=== PATIENT | female | born 1995 | race Caucasian/White ===

== ENCOUNTER 2022-02-08 10:35 | Inpatient (IN) | payer MEDICAID, SELFPAY ==
[2022-02-08] VITALS (37 sets, daily range): BP systolic 106–150; BP diastolic 63–86; PULSE 67–149; TEMP 36.4–37.2; O2SAT 78–100; BMI 29.0
[2022-02-08] MEDS: Lactated Ringers 1,000 ML 200 ML IV ×2 (11:00→13:13)
[2022-02-08] MEDS: LACTATED RINGERS 500 ML 999 ML IV (11:10)
[2022-02-08 11:28] LABS: Absolute Lymphocyte Count 1.76 X10^3/uL (0.83-4.51); Absolute Neutrophil Count 17.8 X10^3/uL (2.0-7.7); Basophil# 0.03 X10^3/uL; Basophil% 0.1 % (0-1); Hematocrit 37.4 % (37-47); Hemoglobin 12.4 g/dL (12.0-15.0); Lymphocyte # 1.76 X10^3/ul (0.83-4.51); Lymphocyte % 8.2 % (19-41); Mean Corp Hgb Conc 33.2 g/dL (32-36); Mean Corpuscular Hgb 31.6 pg (27.0-32.0); Mean Corpuscular Volume 95.2 fL (81-99); Mean Platelet Vol. 10.2 fl (6.2-12.0); Monocyte# 1.55 X10^3/uL; Monocyte% 7.2 % (0-10); NRBC Flagged by Analyzer 0 % (0-5); Neutrophil # 17.82 X10^3/uL (2.7-7.7); Neutrophil % 83.1 % (47-70); POSITIVE DIFFERENTIAL YES; Platelet Count 333 K/mm3 (150-450); RBC Distribution Width CV 14.6 % (11.6-14.6); RBC Distribution Width SD 50.4 fl (35.1-43.9); Red Blood Count 3.93 M/mm3 (4.2-5.4); White Blood Count 21.5 K/mm3 (4.4-11.0)
[2022-02-08 11:31] LABS: Differential Indicated SCAN CRITERIA MET
[2022-02-08 12:02] LABS: Platelet Estimate ADEQUATE (ADEQ); Red Cell Morphology NORM C+C NORMAL (NORM C&C)
--- NOTE | 2022-02-08 12:30 | PCM.HP.OB ---
HPI - General General Date of Admission: 02/08/22 HPI Narrative JENISE MARY, is a 26 F who presents at 39w6d. Arrived as transfer of care from home for maternal pain management. 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 Labor started on 02/07/22 at 0130 per patient. Upon arrival to unit patient was 7cm dilated and requesting epidural for pain management. Co-care completed during with limited visits. uncomplicated. Maternal Data Information Final MARVIN: 02/09/22 PFSH PFSH Home Medications [id number] 1 mg tablet tab PO 02/08/22 [History Last Taken Unknown] Allergy/AdvReac Type Severity Reaction Status Date / Time No Known Allergies Allergy Verified 02/08/22 11:13 Social History Smoking Status: Never smoker History Elective abortions Hx Para 0 Spontaneous abortions Hx # Term Pregnancies Ectopic pregnancies Hx # Pregnancies Multiple births # of living children NST FHR Rate Baby A Baseline: 140 Variability:: Moderate Accelerations:: 15 x 15 FHR Category:: Category I Uterine Activity:: every 2-3 minutes, strong ROS Constitutional Constitutional: Reports systems reviewed and no addt'l complaints, except as documented; Denies headache(s) Eyes Eyes: Denies acute decrease in peripheral vision, blurry vision or change in vision ENT HEENT: Reports systems reviewed and no addt'l complaints, except as documented Cardiovascular Cardiovascular: Denies chest pain or dizziness Respiratory/Chest Respiratory/Chest: Denies cough, dyspnea, dyspnea on exertion, shortness of breath at rest or shortness of breath with exertion Gastrointestinal Gastrointestinal: Denies abdominal pain, diarrhea, nausea or vomiting Genitourinary Genitourinary: Reports movement; Denies abdominal discomfort Musculoskeletal Musculoskeletal: Denies limited range of motion Integumentary Integumentary: Reports systems reviewed and no addt'l complaints, except as documented Neurologic Neurologic: Reports systems reviewed and no addt'l complaints, except as documented Psychiatric Psychiatric: Reports systems reviewed and no addt'l complaints, except as documented Endocrine Endocrinology: Reports systems reviewed and no addt'l complaints, except as documented Hematologic/Lymphatic Hematologic/Lymphatic: Reports systems reviewed and no addt'l complaints, except as documented Allergic/Immunologic Allergic/Immunologic: Reports systems reviewed and no addt'l complaints, except as documented Vital Signs Vital Signs Vital Signs: 02/08/22 11:43 02/08/22 11:43 02/08/22 11:43 Pulse Rate 95 Blood Pressure 137/82 H BP Systolic 137 BP Diastolic 82 Pulse Ox 99 02/08/22 11:48 02/08/22 11:48 02/08/22 11:48 Pulse Rate 102 H Blood Pressure 132/78 H BP Systolic 132 BP Diastolic 78 Pulse Ox 99 02/08/22 11:54 02/08/22 11:54 02/08/22 11:53 Pulse Rate 98 Blood Pressure 133/80 H BP Systolic 133 BP Diastolic 80 Pulse Ox 96 02/08/22 11:59 02/08/22 11:59 02/08/22 11:58 Pulse Rate 102 H Blood Pressure 144/77 H BP Systolic 144 BP Diastolic 77 Pulse Ox 91 02/08/22 11:59 02/08/22 11:59 02/08/22 12:03 Pulse Rate 100 Blood Pressure 150/82 H BP Systolic 150 BP Diastolic 82 Pulse Ox 100 02/08/22 12:03 02/08/22 12:05 02/08/22 12:05 Pulse Rate 103 H 102 H Blood Pressure BP Systolic BP Diastolic Pulse Ox 99 02/08/22 12:10 02/08/22 12:10 02/08/22 12:14 Pulse Rate 97 Blood Pressure 138/82 H BP Systolic 138 BP Diastolic 82 Pulse Ox 99 02/08/22 12:14 02/08/22 12:15 02/08/22 12:15 Pulse Rate 100 102 H Blood Pressure BP Systolic BP Diastolic Pulse Ox 100 02/08/22 12:18 02/08/22 12:18 02/08/22 12:20 Pulse Rate 107 H 100 Blood Pressure 138/81 H BP Systolic 138 BP Diastolic 81 Pulse Ox 02/08/22 12:20 02/08/22 12:25 02/08/22 12:25 Pulse Rate 98 Blood Pressure 150/86 H BP Systolic 150 BP Diastolic 86 Pulse Ox 100 02/08/22 12:25 Pulse Rate Blood Pressure BP Systolic BP Diastolic Pulse Ox 98 Weight Weight: 164 lb Body Mass Index (BMI) 29.0 Labs Labs Labs: Blood Type A POSITIVE Antibody Screen NEGATIVE Hct 37.4 % (37-47) Hgb 12.4 g/dL (12.0-15.0) RPR negative HIV negative HepC negative Rubella Immune HBsAG negative GC/CT negative Declined GBS Assessment & Plan (1) Late care: (2) Active labor at term: PLAN: Plan 1) Admit to labor and delivery 2) Routine labs 3) Epidural for pain management 4) No GBS completed, patient declined and treatment. Informed refusal. 5) Continuous EFM 6) AROM 7) collaborative physician and notified of patient status
[2022-02-08] MEDS: DiphenhydrAMINE 50 MG/ML Syringe 25 MG IV (12:40)
[2022-02-08] MEDS: fentaNYL-bupivacaine (epidural) 100 ML BAG EPIDURAL ×2 (13:14→15:35)
[2022-02-08] MEDS: Oxytocin 30 units/NS 500 ml 30 UNITS/500 ML IV.SOLN 334 UNITS IV (18:20)
--- NOTE | 2022-02-08 18:56 | EX.PCM.OBRPT ---
Assessment & Plan (1) Vaginal delivery: (2) Second degree perineal laceration: Vaginal Delivery Maternal Presentation Maternal Presentation: Active Labor Maternal Presentation: Active labor at term Operative Information Date of Procedure: 02/08/22 Pre-Operative Diagnosis: Active Labor Post-Operative Diagnosis: , second degree perineal laceration Surgery / Procedure Performed: Spontaneous Vaginal Delivery Type of Anesthesia: Epidural and Local with 1% Lidocaine Estimated Blood Loss: 500 ml Time of Delivery: 18:05 Findings Description of Procedure: Progressed to complete with urge to push. Epidural for pain management. of viable male infant over 2nd degree perineal lacerations. APGARS 8,9 respectively. head delivered with body immediately forthcoming. Placed on maternal abdomen, strong cry. Mouth and nares suctioned for secretions. Pitocin started for active 3rd stage management. Cord doubly clamped and cut by FOB after pulsations ceased, delayed cord clamping. Placenta delivered intact via félix, 3 vessel cord intact. Perineum inspected and revealed 2nd degree perineal laceration. Repaired with 3.0 vicryl rapide and lidocaine. Fundus firm and hemostasis achieved. EBL 500 ml. Mom and baby stable, planning to breastfeed. Family bonding well. notified of delivery. Presentation: Vertex and YOHAN Amniotic Membrane Rupture Type: Artificial Amniotic Fluid Description: Clear Placental Delivery Description: Spontaneous Placenta Disposition: [facility] Cord Vessel Description: 3 Vessels Cord Entanglement: None Infant A Gender: Male (1 minute): 8 (5 minute): 9 Delayed Cord Clamping: Yes Post Vaginal Delivery Medications Given After Delivery: IV Pitocin Episiotomy Description: None Laceration: Perineal Extension/lac and 2nd degree Complication Complications: None
[2022-02-08] MEDS: Ibuprofen 600 MG Tablet PO (21:10)
[2022-02-09 00:18] VITALS: BP 128/90; PULSE 116; RESP 16; TEMP 36.7
[2022-02-09] MEDS: Acetaminophen 500 MG Tablet 1000 MG PO ×2 (00:39→09:58)
[2022-02-09 04:10] VITALS: BP 105/52; PULSE 91; RESP 16; TEMP 36.7
[2022-02-09] MEDS: Ibuprofen 600 MG Tablet PO ×2 (04:33→18:50)
[2022-02-09] MEDS: Senna/Docusate Sodium 1 Tablet PO (04:34)
[2022-02-09 05:52] LABS: Hematocrit 29.5 % (37-47); Hemoglobin 10.1 g/dL (12.0-15.0); Mean Corp Hgb Conc 34.2 g/dL (32-36); Mean Corpuscular Volume 96.4 fL (81-99); Mean Platelet Vol. 9.7 fl (6.2-12.0); Platelet Count 229 K/mm3 (150-450); RBC Distribution Width CV 14.7 % (11.6-14.6); RBC Distribution Width SD 51.2 fl (35.1-43.9); Red Blood Count 3.06 M/mm3 (4.2-5.4); White Blood Count 17.4 K/mm3 (4.4-11.0)
[2022-02-09 09:00] VITALS: BP 106/69; PULSE 87; RESP 18; TEMP 37; O2SAT 99
[2022-02-09] MEDS: Dibucaine 30 GM Tube 1 APPLIC TOPICAL (09:58)
--- NOTE | 2022-02-09 10:41 | PN.OBGYN_ITS ---
Subjective Subjective Doing well per patient and nursing staff. Ambulating and taking PO without difficulty. Voiding and passing flatus. Pain controlled. , services for assistance. Denies headache, visual changes, chest pain, shortness of breath, leg pain or increased bleeding. Lochia normal. Objective Data Objective Data Vital Signs: Vital Signs Temp Pulse Resp BP Pulse Ox O2 Del Method 98.6 F 87 18 106/69 99 Room Air 02/09/22 09:00 02/09/22 09:00 02/09/22 09:00 02/09/22 09:00 02/09/22 09:00 02/09/22 09:00 Oxygen Delivery Method Room Air Weight: 164 lb Body Mass Index (BMI) 29.0 Intake & Output: Intake and Output for Last 24 Hours 02/07/22 02/08/22 02/09/22 23:59 23:59 23:59 Intake Total 2433.33 / 2433.33 Output Total 200 / 200 Balance 2233.33 / 2233.33 Lab / Micro Data Result Diagrams: 02/09/22 05:45 Labs: Laboratory Results - last 24 hr 02/08/22 11:05: WBC 21.5 H, RBC 3.93 L, Hgb 12.4, Hct 37.4, MCV 95.2, MCH 31.6, MCHC 33.2, RDW Std Deviation 50.4 H, RDW Coeff of Abner 14.6, Plt Count 333, MPV 10.2, Immature Gran % (Auto) 1.400 H, Neut % (Auto) 83.1 H, Lymph % (Auto) 8.2 L , Rapides % (Auto) 7.2, Eos % (Auto) 0.0, Baso % (Auto) 0.1, Absolute Neuts (auto) 17.8 H, Absolute Lymphs (auto) 1.76, Nucleated RBC % 0, Differential Comment , Diff Path Review May foll, Platelet Estimate ADEQUATE, RBC Morphology NORM C+C 02/08/22 11:05: Blood Type A POSITIVE, Antibody Screen NEGATIVE 02/09/22 05:45: WBC 17.4 H, RBC 3.06 L, Hgb 10.1 L, Hct 29.5 L, MCV 96.4, MCH 33.0 H, MCHC 34.2, RDW Std Deviation 51.2 H, RDW Coeff of Abner 14.7 H, Plt Count 229, MPV 9.7 ROS Constitutional Constitutional: Reports systems reviewed and no addt'l complaints, except as documented; Denies headache(s) Eyes Eyes: Denies acute decrease in peripheral vision, blurry vision or change in vision ENT HEENT: Reports systems reviewed and no addt'l complaints, except as documented Cardiovascular Cardiovascular: Denies chest pain or dizziness Respiratory/Chest Respiratory/Chest: Denies cough, dyspnea, dyspnea on exertion, shortness of breath at rest or shortness of breath with exertion Gastrointestinal Gastrointestinal: Denies abdominal pain, diarrhea, nausea or vomiting Genitourinary Genitourinary: Denies abdominal discomfort Musculoskeletal Musculoskeletal: Denies limited range of motion Integumentary Integumentary: Reports systems reviewed and no addt'l complaints, except as documented Neurologic Neurologic: Reports systems reviewed and no addt'l complaints, except as documented Psychiatric Psychiatric: Reports systems reviewed and no addt'l complaints, except as documented Endocrine Endocrinology: Reports systems reviewed and no addt'l complaints, except as documented Hematologic/Lymphatic Hematologic/Lymphatic: Reports systems reviewed and no addt'l complaints, except as documented Allergic/Immunologic Allergic/Immunologic: Reports systems reviewed and no addt'l complaints, except as documented Physical Exam Const alert and oriented x3 General Appearance: cooperative Orientation / Consciousness: awake, oriented to person, oriented to place and oriented to time Exam Limitations: no limitations HEENT normocephalic Head and Scalp: normal to inspection, normocephalic and atraumatic Face and Sinus: normal facial exam Eyes General Eye: normal appearance of both eyes Neck full ROM Chest Chest: symmetrical chest wall rise Resp normal respiratory effort and normal air movement Auscultation: clear to auscultation bilaterally Cardio regular rate, regular rhythm, S1 normal heart sound, S2 normal heart sound, no murmurs, no rub, no gallops and no clicks GI normal to inspection, nondistended, normoactive bowel sounds and non-tender appearance of the vagina normal Bladder / Kidney Exam: no CVA tenderness Back/Spine normal ROM Extremity normal to inspection and full ROM Skin no rashes or lesions noted Neuro oriented x3, CN's II-XII intact bilaterally and moves all extremities Sensorium / Orientation: awake, alert and oriented to person Motor Exam: clonus absent Deep Tendon Reflexes: Rt Patellar (L4): 2+ and Lt Patellar (L4): 2+ Assessment & Plan (1) Second degree perineal laceration: (2) Vaginal delivery: PLAN: Plan 1) Routine PP care 2) Pain management 3) Vitals stable 4) Planning D/C home tomorrow
[2022-02-09 11:30] VITALS: BP 100/54; PULSE 94; RESP 18; TEMP 36.9; O2SAT 98
[2022-02-09] MEDS: Benzocaine/Lanolin/Aloe Vera 1 SPRAY EACH TOPICAL (11:34)
[2022-02-09] MEDS: Prenatal Vits Tablet 1 TABLET PO (11:34)
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
[2022-02-09 16:40] VITALS: BP 118/70; PULSE 108; RESP 18; TEMP 36.7; O2SAT 98
[2022-02-09 19:46] VITALS: BP 116/69; PULSE 80; RESP 16; TEMP 37.1; O2SAT 99
[2022-02-10 02:04] VITALS: BP 106/60; PULSE 64; RESP 14; TEMP 36.9; O2SAT 98
[2022-02-10 08:40] VITALS: BP 120/90; PULSE 111; RESP 17; TEMP 36.7
[2022-02-10] MEDS: Ibuprofen 600 MG Tablet PO (08:58)
--- NOTE | 2022-02-10 10:00 | PN.OBGYN_ITS ---
Subjective Subjective Doing well per patient and nursing staff. Ambulating and taking PO without difficulty. Voiding and passing flatus. Pain controlled. , services for assistance. Denies headache, visual changes, chest pain, shortness of breath, leg pain or increased bleeding. Lochia normal. Objective Data Objective Data Vital Signs: Vital Signs Temp Pulse Resp BP Pulse Ox O2 Del Method 98.5 F 64 14 106/60 98 Room Air 02/10/22 02:04 02/10/22 02:04 02/10/22 02:04 02/10/22 02:04 02/10/22 02:04 02/10/22 02:04 Oxygen Delivery Method Room Air Weight: 164 lb Body Mass Index (BMI) 29.0 Intake & Output: Intake and Output for Last 24 Hours 02/08/22 02/09/22 02/10/22 23:59 23:59 23:59 Intake Total 2433.33 / 2433.33 Output Total 1000 / 1000 Balance 1433.33 / 1433.33 Lab / Micro Data Result Diagrams: 02/09/22 05:45 ROS Constitutional Constitutional: Reports systems reviewed and no addt'l complaints, except as d ocumented; Denies headache(s) Eyes Eyes: Denies acute decrease in peripheral vision, blurry vision or change in vision ENT HEENT: Reports systems reviewed and no addt'l complaints, except as documented Cardiovascular Cardiovascular: Denies chest pain or dizziness Respiratory/Chest Respiratory/Chest: Denies cough, dyspnea, dyspnea on exertion, shortness of breath at rest or shortness of breath with exertion Gastrointestinal Gastrointestinal: Denies abdominal pain, diarrhea, nausea or vomiting Genitourinary Genitourinary: Denies abdominal discomfort Musculoskeletal Musculoskeletal: Denies limited range of motion Integumentary Integumentary: Reports systems reviewed and no addt'l complaints, except as documented Neurologic Neurologic: Reports systems reviewed and no addt'l complaints, except as documented Psychiatric Psychiatric: Reports systems reviewed and no addt'l complaints, except as documented Endocrine Endocrinology: Reports systems reviewed and no addt'l complaints, except as documented Hematologic/Lymphatic Hematologic/Lymphatic: Reports systems reviewed and no addt'l complaints, except as documented Allergic/Immunologic Allergic/Immunologic: Reports systems reviewed and no addt'l complaints, except as documented Physical Exam Const alert and oriented x3 General Appearance: cooperative Orientation / Consciousness: awake, oriented to person, oriented to place and oriented to time Exam Limitations: no limitations HEENT normocephalic Head and Scalp: normal to inspection, normocephalic and atraumatic Face and Sinus: normal facial exam Eyes General Eye: normal appearance of both eyes Neck full ROM Chest Chest: symmetrical chest wall rise Resp normal respiratory effort and normal air movement Auscultation: clear to auscultation bilaterally Cardio regular rate, regular rhythm, S1 normal heart sound, S2 normal heart sound, no murmurs, no rub, no gallops and no clicks GI normal to inspection, nondistended, normoactive bowel sounds and non-tender appearance of the vagina normal Bladder / Kidney Exam: no CVA tenderness OB / External & Speculum: vaginal laceration Back/Spine normal ROM Extremity normal to inspection and full ROM Skin no rashes or lesions noted Neuro oriented x3, CN's II-XII intact bilaterally and moves all extremities Sensorium / Orientation: awake, alert and oriented to person Motor Exam: clonus absent Deep Tendon Reflexes: Rt Patellar (L4): 2+ and Lt Patellar (L4): 2+ Assessment & Plan (1) Second degree perineal laceration: (2) Vaginal delivery: PLAN: Plan 1) Routine PP care 2) I&Os 3) Vitals stable 4) 5) Planning D/C home today 6) Follow up in 2 weeks and 6 weeks PP
--- NOTE | 2022-02-10 10:03 | PCM.DC.SUM ---
Providers Date of Admission: 02/08/22 Reason For Visit: VAGINAL DELIVERY Diagnosis Discharge Diagnosis (1) Second degree perineal laceration: Status: Acute Code(s): O70.1 - Second degree perineal laceration during delivery (2) Vaginal delivery: Status: Acute Code(s): O80 - Encounter for full-term uncomplicated delivery Plan 1) Routine PP care 2) I&Os 3) Vitals stable 4) 5) Planning D/C home today 6) Follow up in 2 weeks and 6 weeks PP Medications at Discharge Home Medications [id number] 1 mg tablet tab PO 02/08/22 acetaminophen 500 mg tablet 1,000 mg PO Q6H PRN PRN Pain 1-10 Or Fever #0 tabs 02/10/22 ibuprofen 600 mg tablet 600 mg PO Q6H PRN PRN Pain Score 1-3 #0 tabs 02/10/22 Weight / BMI Weight Weight: 164 lb Body Mass Index (BMI) 29.0 ABG / Lab / Microbiology Data Result Diagrams: 02/09/22 05:45 Meaningful Use Info Meaningful Use Diagnoses (Choose all that apply): None applicable Discharge Plan Admission Admit Date/Time: 02/08/22 10:35 Primary Reason for Your Visit: , second degree perineal laceration Attending Provider: Alexandra Cates Instructions Patient Instructions: Breastfeed Common Questions Discharge Orders/Prescriptions Prescriptions: New acetaminophen 500 mg Tablet 1,000 mg PO Q6H PRN PRN (Reason: Pain 1-10 Or Fever) Qty: 0 0RF ibuprofen 600 mg Tablet 600 mg PO Q6H PRN PRN (Reason: Pain Score 1-3) Qty: 0 0RF Continued [id number] 1 mg Tablet PO Referrals / Follow Up: Alexandra Cates CNM [Med Staff - Adv Practice Prof] - (Follow up for 2 week virtual visit and 6 week PP visit) Disposition Disposition (needs filled in before D/C Order can be placed): Home, Self Care
[2022-02-10 13:38] VITALS: BP 115/80; PULSE 77; RESP 17; TEMP 37
[2022-02-11 13:38] LABS: Pathologist Review Reviewed
== END 2022-02-10 14:15 | disposition home or self-care (01) | DRG 807 ==
PROVIDERS: Admitting Provider Advanced Practice Midwife; Visit Provider Advanced Practice Midwife
DX: O70.1 Second degree perineal laceration during delivery (principal); Z37.0 Single live birth; Z3A.39 39 weeks gestation of pregnancy
CPT/HCPCS: 59025; 59050; 85025; 85027; 86850; 86900; 86901; 99218; J7120; G0378